=== PATIENT | female | born 1960 | race Caucasian/White ===

== ENCOUNTER → 2023-05-01 09:07 | Outpatient (CLI) | payer BC, SELFPAY ==
--- NOTE | ~2023-05-01 | CT_ITS ---
. EXAMINATION: CT sinus wo con DATE: 05/01/2023 09:27 INDICATION: Left-sided pressure, left hearing loss. Chronic sinusitis. TECHNIQUE: Computed tomography (CT) of the paranasal sinuses was performed without contrast. Iterativ e reconstruction technique was employed. Exam dose: 429.26 mGy-cm total exam DLP. COMPARISON: None FINDINGS: There is leftward deviation of the nasal septum. There is moderate relatively symmetric prominence of the nasal turbinates. The ostiomeatal units are patent. Mild focal soft tissue thickening is noted in the ethmoid air cells. There is minimal mucoperiosteal thickening along the medial and particularly inferior wall of the left axillary sinus. The paranasal sinuses are otherwise normally developed and aerated. With the exception of a few inferior left mastoid opacified air cells, the mastoid air cells are norm ally developed and aerated bilaterally. Middle and inner ear apparatus appear unremarkable bilaterally. IMPRESSION: Minimal mucoperiosteal thickening of the left maxillary sinus and bilateral ethmoids A few opacified inferior left mastoid air cells; the mastoid air cells are otherwise well-developed a nd aerated Leftward deviation of nasal septum Reviewed, dictated and finalized at [facility]. Reviewed, dictated and finalized at [facility]. IMPRESSION: Minimal mucoperiosteal thickening of the left maxillary sinus and bilateral ethmoids A few opacified inferior left mastoid air cells; the mastoid air cells are othe rwise well-developed and aerated Leftward deviation of nasal septum
== END ==
PROVIDERS: PCP Otolaryngology; Visit Provider Otolaryngology
DX: J32.9 Chronic sinusitis, unspecified (principal); J34.2 Deviated nasal septum
CPT/HCPCS: 70486

== ENCOUNTER 2024-04-18 09:00 | Outpatient (CLI) | payer BC, SELFPAY | END 2024-04-18 09:01 | disposition home or self-care (01) | LOC: ANHAUDIO 09:00 | PROVIDERS: PCP Otolaryngology; Visit Provider Otolaryngology | DX: H93.13 Tinnitus, bilateral (principal); H90.3 Sensorineural hearing loss, bilateral | CPT/HCPCS: 92557; 92567 ==